=== PATIENT | female | born 1985 | race Caucasian/White ===

== ENCOUNTER 2016-07-25 15:38 | Emergency (ER) | payer MEDICAID, OTHER ==
[2016-07-25 15:51] VITALS: BP 119/74
--- NOTE | 2016-07-25 16:00 | UC ---
Dental HPI - HPI Summary HPI Summary: complaint of lower jaw pain had 2 teeth pulled on 6 days ago and then 5 days ago the pain started swelling in and around extraction site eating taking makes the pain worse tried over the counter pain medications without relief called the dentist but he is on vacation until 07/31/16 started on kelfex 6 days ago and has 1 more dose - History of Current Complaint Chief Complaint: UCDentalProblem Stated Complaint: TOOTH PAIN Time Seen by Provider: 07/25/16 15:54 Hx Last Menstrual Period: 06/27/16 - Allergies/Home Medications Allergies/Adverse Reactions: Allergies Allergy/AdvReac Type Severity Reaction Status Date / Time No Known Allergies Allergy Verified 07/25/16 15:44 Home Medications: Home Medications Acetaminophen 500 mg PO Q6H PRN 07/25/16 [History Confirmed 07/25/16] Cephalexin [Keflex] 250 mg PO QID 07/25/16 [History Confirmed 07/25/16] Ibuprofen [Advil] 800 mg PO Q6H PRN 07/25/16 [History Confirmed 07/25/16] Oragel 1 applic TOPICAL PRN 07/25/16 [History] PMH/Surg Hx/FS Hx/Imm Hx Previously Healthy: Yes - Surgical History Surgical History: Yes Surgery Procedure, Year, and Place: GALL BLADDER REMOVAL. - Family History Known Family History: Negative: Cardiac Disease, Hypertension, Diabetes - Social History Occupation: Employed Full-time Lives: With Family Alcohol Use: None Substance Use Type: None Smoking Status (MU): Former Smoker When Did the Patient Quit Smoking/Using Tobacco: 2016 Review of Systems Constitutional: Negative Skin: Negative Eyes: Negative ENT: Dental Pain Respiratory: Negative Cardiovascular: Negative Gastrointestinal: Negative Genitourinary: Negative Motor: Negative Neurovascular: Negative Musculoskeletal: Negative Neurological: Negative Psychological: Negative All Other Systems Reviewed And Are Negative: Yes Physical Exam Triage Information Reviewed: Yes Appearance: Well-Nourished, Pain Distress Vital Signs: Initial Vital Signs Temp 98.7 F 07/25/16 15:46 Pulse 114 07/25/16 15:46 Resp 16 07/25/16 15:46 BP 119/74 07/25/16 15:46 Pulse Ox 100 07/25/16 15:46 Vital Signs Reviewed: Yes Eyes: Positive: Conjunctiva Clear ENT: Positive: Pharynx normal, TMs normal Dental: Positive: Abscess @ - 29 and 30 extraction site- edema and erythema Neck: Positive: No Lymphadenopathy Respiratory: Positive: Lungs clear, Normal breath sounds Cardiovascular: Positive: No Murmur, Tachycardia Abdomen Description: Positive: Nontender, Soft Bowel Sounds: Positive: Present Musculoskeletal: Positive: No Edema Neurological: Positive: Alert Psychological Exam: Normal Skin Exam: Normal Dental Complaint Course/Dx - Course Course Of Treatment: exam completed. infection at extraction site left lower jaw. will change antibiotic from keflex to clindamycin as she has been on amoxicillin and augmentin recently for dental infections. will rx for pain medication for several days unitl infection and pain more controlled. follow up with dentist - Differential Dx/Diagnosis Differential Diagnosis/Dx: Dental Abscess, Other - dry socket Provider Diagnoses: dental abscess Discharge - Discharge Plan Condition: Stable Disposition: HOME Prescriptions: Clindamycin Cap(NF) [Cleocin 300 mg Cap(NF)] 300 mg PO TID #30 cap oxyCODONE/Acetamin 5/325 MG* [Percocet 5/325 TAB*] 1 tab PO Q4H PRN #18 tab MDD 6 PRN Reason: Pain - Uncontrolled Patient Education Materials: Dental Abscess (ED) Additional Instructions: start antibiotic as directed take pain medication as needed, you should only need narcotic pain medication for 2-3 days then switch back to acetaminophen or ibuprofen for pain control keep appointment with your dentisit 07/31/16 for further treatment. DENTAL ABSCESS What is a Dental Abscess? A dental abscess is an infection around the root of a tooth or in the gums or jawbone. The infection causes pus to collect, and a lump can appear. Dental abscesses often get their start when bacteria invade a decayed tooth; the decay may then travel to the gums or jawbone. Decay can also begin in the mouth when teeth are not brushed or flossed properly. Symptoms Might Include: In general, you'll start to have a fever, redness and swelling of the gums or cheek. If you have a lump it may feel hot. Other signs include tooth or mouth pain, a loose tooth, or not being able to close your mouth all the way. If the abscess spreads, your face, neck, or chest may swell. Treatment Recommendations: Rinse your mouth with warm water every hour or as needed to ease the pain. This will help draw the infection from the abscess. For pain, you may take non-prescription medicines such as acetaminophen ( Tylenol) or ibuprofen (Motrin, Advil). To help ease the pain, do not chew on the sore side for at least 2 days; you may need to limit yourself to a liquid diet. Putting ice on your face over the affected area may also relieve the pain. Apply the ice for 10 to 20 minutes out of every hour. Do not leave the ice on for long periods or you can get frostbite. If the abscess is drained, there may be a small hole or drain. Keep the area free of food by rinsing with water after eating. You'll need to return or be seen by a dentist to have the drain removed. The healthcare provider may have prescribed an antibiotic medicine. The medicine should be taken until it is completely gone, even if you are feeling better. If you stop taking the medicine early, the infection may not be completely gone, and the medication may not work the next time. To prevent abscesses: o Campbell regularly with a toothbrush recommended by your dentist. o Floss daily and use a fluoride mouthwash, toothpaste, tablets, or supplements as instructed by your dentist or dental hygienist. o Reduce the amount of sugar in your diet. Call Your Doctor or Return Here IF: You have a high temperature Your pain becomes worse You have any new symptoms or problems that may be due to the medicine you are taking You have new or increased swelling in your face, jaw, cheek, eye, or neck You have any other new symptoms that worry you
== END 2016-07-25 16:18 | disposition home or self-care (01) ==
LOC: UCCORT 15:38
DX: K04.7 Periapical abscess without sinus (principal); Z87.891 Personal history of nicotine dependence
CPT/HCPCS: 99212; G0463

== ENCOUNTER 2016-08-17 16:57 | Emergency (ER) | payer OTHER ==
[2016-08-17 19:28] VITALS: BP 104/50
--- NOTE | 2016-08-17 19:57 | UC ---
Dental HPI - HPI Summary HPI Summary: pt presents with c/o left lower dental pain s/p dental extraction of two lower left molars 4 days ago. Pt was prescribed clindamycin and ibuprofen for infection control and pain management. Pt c/o the left lower jaw is swollen and painful. - History of Current Complaint Chief Complaint: UCDentalProblem Stated Complaint: DENTAL PAIN Time Seen by Provider: 08/17/16 19:27 Hx Obtained From: Patient Hx Last Menstrual Period: due on aug 26 ?: No Onset/Duration: Sudden Onset - s/p dental procedure Severity: Moderate Aggravating: Chewing Alleviating: Nothing Related History: Previous Dental Care on Same Tooth, Swelling - Allergies/Home Medications Allergies/Adverse Reactions: Allergies Allergy/AdvReac Type Severity Reaction Status Date / Time No Known Allergies Allergy Verified 08/17/16 19:20 PMH/Surg Hx/FS Hx/Imm Hx Previously Healthy: Yes - Surgical History Surgical History: Yes Surgery Procedure, Year, and Place: GALL BLADDER REMOVAL. - Family History Known Family History: Negative: Cardiac Disease, Hypertension, Diabetes - Social History Lives: With Family Alcohol Use: None Substance Use Type: None Smoking Status (MU): Former Smoker When Did the Patient Quit Smoking/Using Tobacco: 2016 Review of Systems Constitutional: Negative Skin: Negative Eyes: Negative ENT: Dental Pain - s/p extraction Respiratory: Negative Cardiovascular: Negative Gastrointestinal: Negative Genitourinary: Negative Motor: Negative Neurovascular: Negative Musculoskeletal: Negative Neurological: Negative Psychological: Negative All Other Systems Reviewed And Are Negative: Yes Physical Exam Triage Information Reviewed: Yes Appearance: Well-Appearing Vital Signs: Initial Vital Signs Temp 99.0 F 08/17/16 19:22 Pulse 95 08/17/16 19:22 Resp 18 08/17/16 19:22 BP 104/50 08/17/16 19:22 Pulse Ox 96 08/17/16 19:22 Vital Signs Reviewed: Yes ENT: Positive: Other: - tenderness left lower jaw with palpation Dental Exam: Other Dental: Positive: Other: - swelling at extraction site left lower jaw, incisions intact, no others/sx of infection, no discharge Neck exam: Other - tenerness left lower jaw Respiratory Exam: Normal Cardiovascular Exam: Normal Musculoskeletal Exam: Normal Neurological Exam: Normal Psychological Exam: Normal Skin Exam: Normal Dental Complaint Course/Dx - Differential Dx/Diagnosis Differential Diagnosis/Dx: Dental Abscess, Post Extraction Pain Provider Diagnoses: Post extraction pain, left lower jaw. dental abscess Discharge - Discharge Plan Condition: Stable Disposition: HOME Prescriptions: Lidocaine 2% VISCOUS* [Xylocaine 2% Viscous*] 15 ml SWISH SPIT Q4H PRN #1 btl PRN Reason: Pain Patient Education Materials: Dental Abscess (ED), Acute Dental Trauma (ED) Forms: *Work Release Referrals: Sophie Pryor MD [Primary Care Provider] - Additional Instructions: Please followup with your dental care provider as soon as possible. Continue to take the medications prescribed for you by your dental care provider. If symptoms worsen please seek medical care at the closest medical facility.
[2016-08-17] MEDS ORDERED: Lidocaine 2% VISCOUS* 15 ML UDC PO ONE (20:07)
[2016-08-17] MEDS ORDERED: Lidocaine 2% VISCOUS* 15 ML UDC ONE (20:09)
== END 2016-08-17 20:15 | disposition home or self-care (01) ==
LOC: UCCORT 16:57
DX: K08.409 Partial loss of teeth, unspecified cause, unspecified class (principal); K04.7 Periapical abscess without sinus; Z90.49 Acquired absence of other specified parts of digestive tract; Z87.891 Personal history of nicotine dependence
CPT/HCPCS: 99212; G0463

== ENCOUNTER 2017-02-11 20:23 | Emergency (ER) | payer OTHER ==
[2017-02-11 20:32] VITALS: BP 96/52
--- NOTE | 2017-02-11 20:49 | UC ---
- HPI Summary HPI Summary: 31 YEAR OLD FEMALE PRESENTS WITH COMPLAINS OF SEVERE NAUSEA/VOMITING. I WILL SEND HER TO THE ER FOR LAB WORK. - History of Current Complaint Chief Complaint: UCGeneralIllness Stated Complaint: -NAUSEA 1 WK Time Seen by Provider: 02/11/17 20:49 Hx Obtained From: Patient Onset/Duration: Started Hours Ago Timing: Constant Severity: Moderate Current Severity: Moderate Location of Pain: None Character: None - Assessment Hx Now: Yes - Allergies/Home Medications Allergies/Adverse Reactions: Allergies Allergy/AdvReac Type Severity Reaction Status Date / Time No Known Allergies Allergy Verified 02/11/17 20:32 Home Medications: Home Medications Vitamin [Calna] 1 tab PO DAILY 02/11/17 [History Confirmed 02/11/17] PMH/Surg Hx/FS Hx/Imm Hx Previously Healthy: Yes - Surgical History Surgery Procedure, Year, and Place: GALL BLADDER REMOVAL. Infectious Disease History: No Infectious Disease History: Denies: Traveled Outside the [place] in Last 30 Days - Family History Known Family History: Negative: Cardiac Disease, Hypertension, Diabetes - Social History Alcohol Use: None Substance Use Type: Reports: None Smoking Status (MU): Former Smoker Review of Systems Constitutional: Negative, Fatigue Skin: Negative Eyes: Negative ENT: Negative Respiratory: Negative Cardiovascular: Negative Gastrointestinal: Vomiting, Nausea Genitourinary: Negative Motor: Negative Neurovascular: Negative Musculoskeletal: Negative Neurological: Negative Psychological: Negative All Other Systems Reviewed And Are Negative: Yes Physical Exam - Physical Exam Triage Information Reviewed: Yes Vital Signs Reviewed: Yes Skin: Positive: Warm Head/Face: Positive: Normal Head/Face Inspection Eyes: Positive: Normal ENT: Positive: Normal ENT inspection Neck: Positive: Supple Respiratory/Lung Sounds: Positive: Clear to Auscultation Cardiovascular: Positive: Normal Abdomen Description: Positive: Nontender Course/Dx - Diagnoses Provider Diagnoses: Nausea and vomiting during , Nausea and vomiting during prior to 22 weeks gestation Discharge - Discharge Plan Condition: Stable Disposition: HOME Patient Education Materials: Nausea and Vomiting in (ED), Abdominal Pain (ED) Referrals: Sophie Pryor MD [Primary Care Provider] - If Needed Additional Instructions: We recommend that you go to the emergency department for evaluation of your abdominal pain and nausea.
== END 2017-02-11 21:02 | disposition home or self-care (01) ==
LOC: UCCORT 20:23
DX: O26.899 Other specified pregnancy related conditions, unspecified trimester (principal); R11.2 Nausea with vomiting, unspecified; Z3A.00 Weeks of gestation of pregnancy not specified; Z90.49 Acquired absence of other specified parts of digestive tract; Z87.891 Personal history of nicotine dependence
CPT/HCPCS: 99211; G0463

== ENCOUNTER 2017-11-02 21:26 | Emergency (ER) | payer OTHER ==
[2017-11-02 21:39] VITALS: BP 106/55
[2017-11-02] MEDS ORDERED: Acetaminophen TAB* 325 MG PO ONE (21:44)
--- NOTE | 2017-11-02 21:44 | UC ---
General HPI - HPI Summary HPI Summary: pt is c/o sore lump to r neck today. began with a sore throat 2-3 days ago. + fever. swelling does not change with meals. - History of Current Complaint Stated Complaint: LUMP RIGHT SIDE NECK Time Seen by Provider: 11/02/17 21:38 Hx Obtained From: Patient Hx Last Menstrual Period: 12/27/16 Onset/Duration: Gradual Onset Timing: Constant Alleviating: nothing Associated Signs & Symptoms: Positive: Fever - Allergy/Home Medications Allergies/Adverse Reactions: Allergies Allergy/AdvReac Type Severity Reaction Status Date / Time No Known Allergies Allergy Verified 11/02/17 21:34 PMH/Surg Hx/FS Hx/Imm Hx - Additional Past Medical History Additional PMH: currently lactating, gave 1 month ago. - Surgical History Surgical History: Yes Surgery Procedure, Year, and Place: GALL BLADDER REMOVAL. - Family History Known Family History: Negative: Cardiac Disease, Hypertension, Diabetes - Social History Lives: With Family Alcohol Use: None Substance Use Type: None Smoking Status (MU): Light Every Day Tobacco Smoker When Did the Patient Quit Smoking/Using Tobacco: 2015 - Immunization History Vaccination Up to Date: Yes Review of Systems Constitutional: Fever Skin: Negative Eyes: Negative ENT: Sore Throat Respiratory: Negative Cardiovascular: Negative Gastrointestinal: Negative Genitourinary: Negative Motor: Negative Neurovascular: Negative Musculoskeletal: Negative Neurological: Negative Psychological: Negative Is Patient Immunocompromised?: No All Other Systems Reviewed And Are Negative: Yes Physical Exam Triage Information Reviewed: Yes Appearance: Well-Appearing Vital Signs Reviewed: Yes Eyes: Positive: Conjunctiva Clear ENT: Positive: Pharyngeal erythema, TMs normal, Uvula midline, Other - no parotid or submandibular gland swelling or tenderness.. Negative: Nasal congestion, Nasal drainage, Tonsillar swelling, Tonsillar exudate, Trismus, Muffled voice, Hoarse voice Neck: Positive: Supple, Tenderness @ - peritonsilar glands with swelling R > L Respiratory: Positive: Lungs clear, Normal breath sounds Cardiovascular: Positive: RRR, No Murmur Abdomen Description: Positive: Nontender, No Organomegaly, Soft Bowel Sounds: Positive: Present Musculoskeletal: Positive: ROM Intact Neurological: Positive: Alert Psychological: Positive: Age Appropriate Behavior Skin Exam: Normal Diagnostics - Laboratory Diagnostic Studies Completed/Ordered: rapid strep=+ Course/Dx - Course Course Of Treatment: non toxic, no s/s's of pharygeal abscess, unlikely mono. rapid strep=+ - Differential Dx - Multi-Symptom Provider Diagnoses: strep throat Discharge - Sign-Out/Discharge Documenting (check all that apply): Discharge/Admit/Transfer - Discharge Plan Condition: Stable Disposition: HOME Prescriptions: Amoxicillin PO (*) [Amoxicillin 500 MG CAP*] 500 mg PO Q12H #20 cap Patient Education Materials: Strep Throat (DC) Referrals: Sophie Pryor MD [Primary Care Provider] - 7 Days - Billing Disposition and Condition Condition: STABLE Disposition: HOME
[2017-11-02] MEDS ORDERED: Amoxicillin PO (*) 500 MG CAP PO ONE (21:58)
== END 2017-11-02 22:03 | disposition home or self-care (01) ==
LOC: UCCORT 21:26
DX: J02.0 Streptococcal pharyngitis (principal); Z87.891 Personal history of nicotine dependence
CPT/HCPCS: 87651; 99212; A9270-GY; G0463

== ENCOUNTER 2019-07-26 14:20 | Emergency (ER) | payer OTHER | END 2019-07-26 14:45 | disposition left against medical advice (07) | LOC: UCCORT 14:20 | DX: Z53.21 Procedure and treatment not carried out due to patient leaving prior to being seen by health care provider (principal) ==

== ENCOUNTER 2019-08-22 15:15 | Emergency (ER) | payer OTHER ==
[2019-08-22 15:50] VITALS: BP 97/61
--- NOTE | 2019-08-22 16:43 | UC ---
Abdominal Pain Female HPI - HPI Summary HPI Summary: 33 year old female with no PMH, 5 vaginal deliveries in past, most recent ~ 1 year ago, presents with lower abdominal pain x 3 days. mild nausea, no vomiting. + loose stools, putty like, no blood/ dark tarry stools for past 24 hours. no fever, ? chills x 1. no headache, lightheadedness, dizziness. no prior abdominal surgeries. no sore throat, sinus pain, cough. no SOB. no recent illnesses. needs work note. concerned for as + sexually active, not on BC. was on depo prior with significant weight gain - History of Current Complaint Chief Complaint: UCAbdominalPain Stated Complaint: NAUSEA, ABD PAIN Time Seen by Provider: 08/22/19 15:45 Hx Obtained From: Patient Hx Last Menstrual Period: 08/09/19 ?: No Onset/Duration: Sudden Onset, Lasting Days - 3 Severity Initially: Mild Severity Currently: Mild Pain Intensity: 5 Pain Scale Used: 0-10 Numeric Location: Diffuse - more lower abdomen, left. Radiates: No Character: Colicy, Cramping Aggravating Factor(s): Nothing Alleviating Factor(s): Nothing, Other: - has not tried medications Allergies/Adverse Reactions: Allergies Allergy/AdvReac Type Severity Reaction Status Date / Time No Known Allergies Allergy Verified 08/22/19 15:50 Home Medications: Home Medications Etonogest/Eth.estradiol (Nf) [Nuvaring Vaginal Ring] 1 each VAGINAL MONTHLY #1 vag.ring 08/22/19 [Rx] PMH/Surg Hx/FS Hx/Imm Hx Previously Healthy: Yes - Surgical History Surgical History: Yes Surgery Procedure, Year, and Place: GALL BLADDER REMOVAL. - Family History Known Family History: Positive: Non-Contributory Negative: Cardiac Disease, Hypertension, Diabetes - Social History Alcohol Use: Occasionally Substance Use Type: None Smoking Status (MU): Light Every Day Tobacco Smoker Type: Cigarettes Amount Used/How Often: 7 cigs daily When Did the Patient Quit Smoking/Using Tobacco: 2016 - Immunization History Vaccination Up to Date: Yes Review of Systems All Other Systems Reviewed And Are Negative: Yes Constitutional: Positive: Chills Skin: Positive: Negative Gastrointestinal: Positive: Abdominal Pain, Diarrhea, Nausea - after eating. tolerating fluids well.. Negative: Vomiting Genitourinary: Negative: Dysuria, Hematuria, Frequency, Urgency, Vaginal/Penile Burning, Vaginal/Penile Itching, Vaginal/Penile Discharge, Vaginal/Penile Pain, Vaginal/Penile Tenderness, Ulceration/Lesion, Abnormal Bleeding Neurovascular: Positive: Negative Musculoskeletal: Positive: Negative Neurological/Mental Status: Positive: Negative Psychological: Positive: Negative Is Patient Immunocompromised?: No Physical Exam Triage Information Reviewed: Yes Appearance: Well-Appearing, No Pain Distress, Well-Nourished Vital Signs: Initial Vital Signs Temp 97.3 F 08/22/19 15:46 Pulse 72 08/22/19 15:46 Resp 16 08/22/19 15:46 BP 97/61 08/22/19 15:46 Pulse Ox 100 08/22/19 15:46 Vital Signs Reviewed: Yes Eyes: Positive: Conjunctiva Clear ENT: Positive: Hearing grossly normal Abdomen Description: Positive: Nontender, No Organomegaly, Soft, Other: - neg psoas, obterurator tesing. obese.. Negative: Bruit, CVA Tenderness (R), CVA Tenderness (L), Distended, Guarding, Hepatomegaly, McBurney's Point Tenderness, Splenomegaly Bowel Sounds: Positive: Present - mild hyperactive all 4 Musculoskeletal: Positive: Strength Intact, ROM Intact Neurological: Positive: Alert Skin Exam: Normal Skin: Negative: Rashes Abd Pain Female Course/Dx - Course Course Of Treatment: Acute diarrhea, likley viral. - FOllow up with [employer] about control - Prescribed Nuva ring for a1 month to prevent in interim - Increase fluids to prevent dehydration - [place] diet, probiotics to help gut ethan - Work notes given - Go to ER with worsening pain, feve r> 102, or no improvement of symptoms in 3 days - Differential Dx/Diagnosis Provider Diagnosis: Diarrhea Discharge ED - Sign-Out/Discharge Documenting (check all that apply): Patient Departure All imaging exams completed and their final reports reviewed: No Studies - Discharge Plan Condition: Good Disposition: HOME Prescriptions: Etonogest/Eth.estradiol (Nf) [Nuvaring Vaginal Ring] 1 each VAGINAL MONTHLY #1 vag.ring Patient Education Materials: Acute Diarrhea (ED) Forms: *Work Release Referrals: Sophie Pryor MD [Primary Care Provider] - Additional Instructions: - FOllow up with [employer] about control - Prescribed Nuva ring for a1 month to prevent in interim - Increase fluids to prevent dehydration - [place] diet, probiotics to help gut ethan - Work notes given - Go to ER with worsening pain, feve r> 102, or no improvement of symptoms in 3 days - Billing Disposition and Condition Condition: GOOD Disposition: Home
== END 2019-08-22 16:54 | disposition home or self-care (01) ==
LOC: UCCORT 15:15
DX: R19.7 Diarrhea, unspecified (principal); R11.0 Nausea; R10.9 Unspecified abdominal pain; F17.210 Nicotine dependence, cigarettes, uncomplicated
CPT/HCPCS: 81003; 84702; 99212; G0463

== ENCOUNTER 2019-08-25 13:00 | Emergency (ER) | payer OTHER ==
[2019-08-25 13:25] VITALS: BP 96/65
--- NOTE | 2019-08-25 14:42 | UC ---
Complaint Female HPI - HPI Summary HPI Summary: 33 y/o female presents to the urgent care c/o concerned for nuvaring placement. 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 Denies any pain. Next appt w/ OB is on 08/31/19. LMP:08/09/2019 w/ regular menstrual cycles, Pt denies fever, vaginal discharge, abdominal pain, rash, Hx of STD's, lower back pain, urinary symptoms, dizziness, chest pain, SOB, N/V/d. - History Of Current Complaint Chief Complaint: UCGeneralIllness Stated Complaint: PERSONAL Time Seen by Provider: 08/25/19 14:40 Hx Obtained From: Patient Hx Last Menstrual Period: 08/09/19 ?: No Onset/Duration: Sudden Onset, Lasting Hours - unsure if she placed Nuvaring correctly Timing: Constant Severity Initially: Mild Severity Currently: Mild Pain Intensity: 0 Pain Scale Used: 0-10 Numeric Character: Not Applicable Aggravating Factor(s): Nothing Alleviating Factor(s): Nothing Associated Signs And Symptoms: Positive: Retained Foregin Body (Specify) - Nuvaring. Negative: Fever, Back Pain, Vaginal Bleeding/Discharge, Vaginal Discharge, Nausea, Vomiting(# Of Episodes =) - Risk Factors Ectopic Risk Factor: Negative Ovarian Torsion Risk Factor: Negative - Allergies/Home Medications Allergies/Adverse Reactions: Allergies Allergy/AdvReac Type Severity Reaction Status Date / Time No Known Allergies Allergy Verified 08/25/19 13:21 Home Medications: Home Medications Etonogest/Eth.estradiol (Nf) [Nuvaring Vaginal Ring] 1 each VAGINAL MONTHLY #1 vag.ring 08/22/19 [Rx Confirmed 08/25/19] PMH/Surg Hx/FS Hx/Imm Hx Previously Healthy: Yes - Pt denies PMHX - Surgical History Surgical History: Yes Surgery Procedure, Year, and Place: GALLBLADDER REMOVAL. - Family History Known Family History: Positive: Hypertension Negative: Cardiac Disease, Diabetes - Social History Occupation: Employed Full-time Lives: With Family Alcohol Use: Occasionally Substance Use Type: None Smoking Status (MU): Light Every Day Tobacco Smoker Type: Cigarettes Amount Used/How Often: 7 cigs daily When Did the Patient Quit Smoking/Using Tobacco: 2015 - Immunization History Vaccination Up to Date: Yes Review of Systems All Other Systems Reviewed And Are Negative: Yes Constitutional: Positive: Negative Skin: Positive: Negative Eyes: Positive: Negative ENT: Positive: Negative Respiratory: Positive: Negative Cardiovascular: Positive: Negative Gastrointestinal: Positive: Negative Genitourinary: Positive: Other - Nuvaring placed incorrectly Motor: Positive: Negative Neurovascular: Positive: Negative Neurological/Mental Status: Positive: Negative Psychological: Positive: Negative Is Patient Immunocompromised?: No Physical Exam - Summary Physical Exam Summary: Vital signs: reviewed General: well developed, well nourished female sitting in the examining table w /o any acute distress. Head: Normocephalic, no lesions. Eyes: PERRLA, EOM's full, conjunctiva clear, fundi grossly normal. Ears: EAC's clear, TM's normal. Nose: Mucosa normal, no obstruction. Throat: Clear, no exudates, no lesions. Neck: Supple, no masses, no thyromegaly, no bruits. Chest: Lungs clear, no rales, no rhonchi, no wheezes. Heart: RR, no murmurs, no rubs, no gallops. Abdomen: Soft, no tenderness, no masses, BS normal. Pelvic: I was assisted by nurse Magdalena. External genitalia within normal limits. There is no lesions there is no masses noted. Speculum exam: The vaginal menendez are within normal limits w/ normal clear vaginal discharge, no lesions or rashes. The cervix is closed with no lesions or masses. There is no CMT's, and no adnexal masses. The nuvaring was not observed w/ speculum, but it was in the cuddle the sac area and removed. Then it was placed in the right position around cervix. Pt tolerated well procedure. . Rectal: No lesions, no hemorrhoids, Back: Normal curvature, no tenderness. Extremities: FROM, no deformities, no edema, no erythema. Neuro: Physiological, no localizing findings. Skin: Normal, no rashes, no lesions noted. Triage Information Reviewed: Yes Vital Signs: Initial Vital Signs Temp 97.9 F 08/25/19 13:22 Pulse 72 08/25/19 13:22 Resp 16 08/25/19 13:22 BP 96/65 08/25/19 13:22 Pulse Ox 100 08/25/19 13:22 Complaint Female Dx - Course Course Of Treatment: 33 y/o female presents to the urgent care c/o concerned for nuvaring placement. 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 Denies any pain. Next appt w/ OB is on 08/31/19. LMP:08/09/2019 w/ regular menstrual cycles, Pt denies fever, vaginal discharge, abdominal pain, rash, Hx of STD's, lower back pain, urinary symptoms, dizziness, chest pain, SOB, N/V/d. Hx obtained. I was assisted by nurse Magdalena. External genitalia within normal limits. There is no lesions there is no masses noted. Speculum exam: The vaginal menendez are within normal limits w/ normal clear vaginal discharge, no lesions or rashes. The cervix is closed with no lesions or masses. There is no CMT's, and no adnexal masses. The nuvaring was not observed w/ speculum, but it was in the cuddle the sac area and removed. Then it was placed in the right position around cervix. Pt tolerated well procedure. Pt advised to f/u her appt w/ her ELECTRONICS PROCESSOR on 08/31/2019 for further monitor in her contraception plan. Pt understood and agreed w/ plan of care. - Differential Dx/Diagnosis Differential Diagnosis/HQI/PQRI: Cervicitis, , Urinary Tract Infection , Other - foreing body Provider Diagnosis: Encounter for surveillance of nuvaring Discharge ED - Sign-Out/Discharge Documenting (check all that apply): Patient Departure - D/C home All imaging exams completed and their final reports reviewed: No Studies - Discharge Plan Condition: Stable Disposition: HOME Patient Education Materials: Barrier Methods of Contraception (ED) Referrals: Sophie Pryor MD [Primary Care Provider] - 3 Days Additional Instructions: 1- Your nuvaring was put in place. Please f/u w/ your ELECTRONICS PROCESSOR on 08/31/2019 for your f /u appointment. - Billing Disposition and Condition Condition: STABLE Disposition: Home
== END 2019-08-25 15:10 | disposition home or self-care (01) ==
LOC: UCCORT 13:00
DX: Z30.9 Encounter for contraceptive management, unspecified (principal); F17.210 Nicotine dependence, cigarettes, uncomplicated
CPT/HCPCS: 99212; G0463

== ENCOUNTER 2019-09-11 21:13 | Emergency (ER) | payer OTHER ==
--- NOTE | 2019-09-11 21:39 | UC ---
FLU HPI - HPI Summary HPI Summary: C/O 2 day history of cough, congestion, sore throat, headache, body aches and sweats and chills. Cough is non-productive. H/O asthma. - History of Current Complaint Chief Complaint: UCGeneralIllness Stated Complaint: FEVER/COUGH/NASAL CONGESTION Hx Obtained From: Patient Hx Last Menstrual Period: nuvaring ?: No Onset/Duration: Sudden Onset, Lasting Days - 2, Still Present Severity Currently: Severe Severity Initially: Moderate Pain Intensity: 8 Associated Signs & Symptoms: Positive: Fever, Myalgia, Cough, Sore Throat, Nasal Congestion, Headache Related Hx: Possible Flu/Infectious Exposure - works for [employer] - Risk Factors Influenza Risk Factors: Negative - Allergy/Home Medications Allergies/Adverse Reactions: Allergies Allergy/AdvReac Type Severity Reaction Status Date / Time No Known Allergies Allergy Verified 09/11/19 21:22 Home Medications: Home Medications Etonogest/Eth.estradiol (Nf) [Nuvaring Vaginal Ring] 1 each VAGINAL MONTHLY #1 vag.ring 08/22/19 [Rx Confirmed 09/11/19] Pseudoephedrine HCl [Sudafed 12 Hour] 2 tab PO BEDTIME PRN 09/11/19 [History Confirmed 09/11/19] predniSONE 20 mg TAB [Deltasone 20 MG TAB*] 60 mg PO DAILY #18 tab 09/11/19 [Rx] PMH/Surg Hx/FS Hx/Imm Hx Respiratory History: Asthma - Surgical History Surgical History: Yes Surgery Procedure, Year, and Place: GALLBLADDER REMOVAL. - Family History Known Family History: Positive: Hypertension, Diabetes, Non-Contributory Negative: Cardiac Disease - Social History Occupation: Employed Full-time Lives: With Family Alcohol Use: Occasionally Substance Use Type: None Smoking Status (MU): Light Every Day Tobacco Smoker Type: Cigarettes Amount Used/How Often: 7-12 cigs daily Length of Time of Smoking/Using Tobacco: 7 yrs Have You Smoked in the Last Year: Yes When Did the Patient Quit Smoking/Using Tobacco: 2016 Cessation Counseling: Patient Advised to Stop - Immunization History Vaccination Up to Date: Yes Review of Systems All Other Systems Reviewed And Are Negative: Yes Constitutional: Positive: Fever, Fatigue ENT: Positive: Sore Throat, Nasal Discharge Respiratory: Positive: Shortness Of Breath - wheezing, Cough Musculoskeletal: Positive: Myalgia Neurological/Mental Status: Positive: Headache Is Patient Immunocompromised?: No Physical Exam Triage Information Reviewed: Yes Appearance: No Pain Distress, Well-Nourished, Ill-Appearing Vital Signs: Initial Vital Signs Temp 98.3 F 09/11/19 21:24 Pulse 97 09/11/19 21:24 Resp 20 09/11/19 21:24 BP 95/59 09/11/19 21:24 Pulse Ox 99 09/11/19 21:24 Vital Signs Reviewed: Yes Eyes: Positive: Conjunctiva Inflamed ENT: Positive: Pharynx normal, TMs normal Neck exam: Normal Respiratory: Positive: Wheezing - expiratory wheeze with coughing Cardiovascular Exam: Normal Musculoskeletal Exam: Normal Neurological Exam: Normal Psychological Exam: Normal Skin Exam: Normal Flu Course/Dx - Differential Dx/Diagnosis Differential Diagnosis/HQI/PQRI: Bronchitis, Influenza, Pneumonia, Upper Respiratory Infection Provider Diagnosis: Upper respiratory infection with cough and congestion, Acute bronchospasm due to viral infection Discharge ED - Sign-Out/Discharge Documenting (check all that apply): Patient Departure All imaging exams completed and their final reports reviewed: No Studies - Discharge Plan Condition: Stable Disposition: HOME Prescriptions: predniSONE 20 mg TAB [Deltasone 20 MG TAB*] 60 mg PO DAILY #18 tab Patient Education Materials: Upper Respiratory Infection (ED), Bronchospasm (ED ) Referrals: Sophie Pryor MD [Primary Care Provider] - Additional Instructions: Smoking Cessation Tricks. 1. Cut down by 1 cigarette per day every 2-3 days. Write the number of smokes for that day on the calendar. 2. Identify triggers to smoking: after meals, on the phone, in the car, with coffee, on breaks at work, etc. 3. Formulate a plan with a behavior to replace the smoking. Fireballs in the car , doodle pad on the phone, flavored creamer for the coffee, go for a walk after a meal or on break at work. 4. For stress smokes do deep breathing relaxation. Breath deep in through the nose hold the breath in for a few seconds then breath out slowly through the mouth. - Billing Disposition and Condition Condition: STABLE Disposition: Home
[2019-09-11 21:50] LABS: Influenza A Molecular Negative (Negative); Influenza B Molecular Negative (Negative)
[2019-09-11] MEDS ORDERED: Albuterol HFA INHALER* 8 gm MDI INH ONE (21:51)
[2019-09-11 22:29] VITALS: BP 95/59
== END 2019-09-11 22:07 | disposition home or self-care (01) ==
LOC: UCCORT 21:13
DX: J06.9 Acute upper respiratory infection, unspecified (principal); J45.909 Unspecified asthma, uncomplicated; R05 Cough; R09.89 Other specified symptoms and signs involving the circulatory and respiratory systems; M79.10 Myalgia, unspecified site; R51 Headache; F17.210 Nicotine dependence, cigarettes, uncomplicated; Z79.52 Long term (current) use of systemic steroids
CPT/HCPCS: 99212; A9270-GY; G0463